=== PATIENT | female | born 2000 | race Caucasian/White ===

== ENCOUNTER 2021-01-08 21:24 | Outpatient (CLI) | payer BC ==
[~2021-01-08] VITALS: Ht 171.4 cm; Wt 83.2 kg
[2021-01-08 22:07] VITALS: BP 125/75
[2021-01-11] MEDS ORDERED: IBUP-1222 PO (06:42)
[2021-01-11] MEDS ORDERED: ENOX40SY4 SQ (06:43)
== END 2021-01-08 23:13 | disposition home or self-care (01) ==
LOC: LDOP 21:24
PROVIDERS: ATTEND Obstetrics & Gynecology
DX: O42.92 Full-term premature rupture of membranes, unspecified as to length of time between rupture and onset of labor (principal); Z3A.39 39 weeks gestation of pregnancy
CPT/HCPCS: 59025; 84112

== ENCOUNTER 2021-01-09 16:45 | Outpatient (CLI) | payer BC ==
[~2021-01-09] VITALS: Ht 171.4 cm; Wt 83.2 kg
[2021-01-09 17:17] VITALS: BP 128/76
[2021-01-09] MEDS ORDERED: ZOLPIDEM 5MG TABLET ONE (17:49)
[2021-01-09] MEDS ORDERED: ZOLPIDEM 5MG TABLET PO PRN (18:00)
[2021-01-11] MEDS ORDERED: IBUP-1222 PO (06:42)
[2021-01-11] MEDS ORDERED: ENOX40SY4 SQ (06:43)
== END 2021-01-09 18:04 | disposition home or self-care (01) ==
LOC: LDOP 16:45
PROVIDERS: ATTEND Obstetrics & Gynecology
DX: O26.893 Other specified pregnancy related conditions, third trimester (principal); R10.9 Unspecified abdominal pain; Z3A.40 40 weeks gestation of pregnancy
CPT/HCPCS: 59025

== ENCOUNTER 2021-01-10 00:58 | Inpatient (IN) | payer SELFPAY ==
[~2021-01-10] VITALS: Ht 170.2 cm; Wt 83.0 kg
[2021-01-10] MEDS ORDERED: FENTANYL PF 100 MCG/2ML IV PRN (01:30)
[2021-01-10] MEDS ORDERED: CALCIUM CARBONATE 500 MG TAB.CHEW PO PRN (01:30)
[2021-01-10] MEDS ORDERED: OXYTOCIN 30U/ 0.9% NaCL 500ML 500 ML IV ONE (01:30)
[2021-01-10] MEDS ORDERED: SODIUM CITRATE/CITRIC ACID 30 ML UDC PO PRN (01:30)
[2021-01-10] MEDS ORDERED: SODIUM CHLORIDE FLUSH 10ML SYR IVF PRN (01:30)
[2021-01-10] MEDS ORDERED: METOCLOPRAMIDE 5 MG/ML, 2ML IVPush PRN (01:30)
[2021-01-10] MEDS ORDERED: TERBUTALINE 1 MG/ML, 1ML SQ PRN (01:30)
[2021-01-10] MEDS ORDERED: ALUMINUM/MAG/SIMETHICONE 30 ML UDC PO PRN (01:30)
[2021-01-10] MEDS ORDERED: TERBUTALINE 1 MG/ML, 1ML IVPush PRN (01:30)
[2021-01-10] MEDS ORDERED: LIDOCAINE 1%, 20ML ONE (01:33)
[2021-01-10] MEDS ORDERED: OXYTOCIN 30U/ 0.9% NaCL 500ML 500 ML ONE ×2 (01:33→20:53)
[2021-01-10] MEDS ORDERED: MISOPROSTOL 200 MCG TABLET ONE (01:33)
[2021-01-10] MEDS ORDERED: FENTANYL PF 100 MCG/2ML ONE ×2 (01:47→03:34)
[2021-01-10] MEDS: LACTATED RINGERS 1,000 ML IV SCH ×5 (01:55→18:30)
[2021-01-10 01:56] LABS: BASOPHILS % (AUTO) 0 % (0-1); EOSINOPHILS % (AUTO) 1 % (1-7); LYMPHOCYTES % (AUTO) 20 % (22-44); MEAN CORPUSCULAR HEMOGLOBIN 27.2 pg (27.0-34.8); MEAN CORPUSCULAR HGB CONC 33.5 g/dL (32.4-35.8); MEAN PLATELET VOLUME 9.3 fL (7.4-10.4); MONOCYTES % (AUTO) 11 % (2-9); NEUTROPHILS % (AUTO) 68 % (42-75); PLATELET COUNT 207 x10^3/uL (130-400); RED BLOOD COUNT 3.84 x10^6/uL (3.82-5.3); RED CELL DISTRIBUTION WIDTH 13.6 % (9.6-15.2)
[2021-01-10] MEDS: FENTANYL PF 100 MCG/2ML IVPush PRN ×2 (01:56→03:43)
[2021-01-10 02:13] VITALS: BP 121/65
[2021-01-10 02:17] LABS: MD NO
[2021-01-10] MEDS ORDERED: ONDANSETRON 2MG/ML, 2ML ONE ×2 (03:34→15:22)
[2021-01-10] MEDS: ONDANSETRON 2MG/ML, 2ML IVPush PRN ×2 (03:44→15:31)
[2021-01-10] MEDS ORDERED: OXYTOCIN 30U/ 0.9% NaCL 500ML 500 ML IV PRN (07:00)
[2021-01-10] MEDS ORDERED: FENTANYL/BUPIV./NS/PF 250 ML EPIDCONT ONE (08:45)
[2021-01-10] MEDS ORDERED: BUPIVACAINE 0.25% ONE (08:45)
[2021-01-10] MEDS: D5%-LACTATED RINGERS 1,000 ML IV SCH ×3 (09:30→17:30)
[2021-01-10] MEDS ORDERED: EPHEDRINE 50 MG/ML, 1ML IVPush PRN (10:30)
[2021-01-10] MEDS ORDERED: DIPHENHYDRAMINE 50 MG/ML, 1ML IVPush PRN (10:30)
[2021-01-10] MEDS ORDERED: LACTATED RINGERS 1,000 ML IVBOLUS PRN (10:30)
[2021-01-10] MEDS ORDERED: FENTANYL/BUPIV./NS/PF 250 ML EPIDCONT SCH (10:30)
[2021-01-10] MEDS ORDERED: NALOXONE 0.4 MG/ML, 1ML IVPush PRN (10:30)
[2021-01-10] MEDS ORDERED: ONDANSETRON 2MG/ML, 2ML IVPush PRN (10:30)
[2021-01-10] MEDS: OXYTOCIN 30U/ 0.9% NaCL 500ML 500 ML IV SCH (20:00)
[2021-01-10] MEDS ORDERED: ACETAMINOPHEN 325 MG TABLET PO PRN ×2 (20:00)
[2021-01-10] MEDS ORDERED: METHYLERGONOVINE 0.2 MG/ML IM PRN (20:00)
[2021-01-10] MEDS ORDERED: OXYcodone/APAP 5/325MG TABLET PO PRN (20:00)
[2021-01-10] MEDS ORDERED: SIMETHICONE 80 MG CHEW TAB PO PRN (20:00)
[2021-01-10] MEDS ORDERED: ONDANSETRON 2MG/ML, 2ML IV PRN (20:00)
[2021-01-10] MEDS ORDERED: MISOPROSTOL 200 MCG TABLET PR PRN (20:00)
[2021-01-10 21:40] VITALS: BP 124/75
[2021-01-10] MEDS: IBUPROFEN 600 MG TABLET PO PRN (22:01)
[2021-01-11 00:20] VITALS: BP 113/72
[2021-01-11] MEDS: D5%-LACTATED RINGERS 1,000 ML IV SCH (01:30)
[2021-01-11] MEDS: LACTATED RINGERS 1,000 ML IV SCH ×4 (01:30→10:30)
[2021-01-11] MEDS: OXYTOCIN 30U/ 0.9% NaCL 500ML 500 ML IV SCH (02:22)
[2021-01-11] MEDS: IBUPROFEN 600 MG TABLET PO PRN ×4 (03:54→22:07)
[2021-01-11 04:00] VITALS: BP 111/71
[2021-01-11] MEDS ORDERED: IBUP-1222 PO ×2 (06:42)
[2021-01-11] MEDS ORDERED: ENOX40SY4 SQ ×2 (06:43)
[2021-01-11] MEDS ORDERED: OXYC1TAB14 PO (06:43)
[2021-01-11 07:06] LABS: BASOPHILS % (AUTO) 0 % (0-1); EOSINOPHILS % (AUTO) 1 % (1-7); LYMPHOCYTES % (AUTO) 11 % (22-44); MEAN CORPUSCULAR HEMOGLOBIN 27.3 pg (27.0-34.8); MEAN CORPUSCULAR HGB CONC 33.3 g/dL (32.4-35.8); MEAN PLATELET VOLUME 9.2 fL (7.4-10.4); MONOCYTES % (AUTO) 8 % (2-9); NEUTROPHILS % (AUTO) 80 % (42-75); PLATELET COUNT 171 x10^3/uL (130-400); RED BLOOD COUNT 3.23 x10^6/uL (3.82-5.3); RED CELL DISTRIBUTION WIDTH 13.6 % (9.6-15.2)
[2021-01-11 07:40] VITALS: BP 106/64
[2021-01-11 07:45] LABS: MD SCAN
[2021-01-11] MEDS: DOCUSATE 100 MG CAPSULE PO PRN (08:16)
[2021-01-11] MEDS: PRENATAL VIT/IRON/FA 1 EACH TABLET PO SCH (08:16)
[2021-01-11 12:00] VITALS: BP 110/64
[2021-01-11] MEDS: OXYcodone/APAP 5/325MG TABLET PO PRN ×2 (15:41→19:54)
[2021-01-11 20:05] VITALS: BP 110/65
[2021-01-11] MEDS ORDERED: FLU VACC QS2020-21(6MOS UP)/PF 60MCG/0.5 ML SYR IM ONE (21:00)
[2021-01-12 08:10] VITALS: BP 120/75
[2021-01-12] MEDS: PRENATAL VIT/IRON/FA 1 EACH TABLET PO SCH (08:28)
[2021-01-12] MEDS: IBUPROFEN 600 MG TABLET PO PRN (08:28)
[2021-01-12] MEDS: DOCUSATE 100 MG CAPSULE PO PRN (08:28)
[2021-01-12] MEDS ORDERED: IBUP-1222 PO (09:00)
== END 2021-01-12 12:30 | disposition home or self-care (01) | DRG 806 ==
LOC: LDOP 00:58 → LDIP 01:38 → 2NW 21:35
PROVIDERS: ADMIT Obstetrics & Gynecology; ATTEND Obstetrics & Gynecology
PROC: 10E0XZZ Delivery of Products of Conception, External Approach (ICD-10-PCS; principal; 2021-01-10)
PROC: 0KQM0ZZ Repair Perineum Muscle, Open Approach (ICD-10-PCS; 2021-01-10)
PROC: 3E0R3BZ Introduction of Anesthetic Agent into Spinal Canal, Percutaneous Approach (ICD-10-PCS; 2021-01-10)
PROC: 00HU33Z Insertion of Infusion Device into Spinal Canal, Percutaneous Approach (ICD-10-PCS; 2021-01-10)
DX: O77.0 Labor and delivery complicated by meconium in amniotic fluid (principal); D62 Acute posthemorrhagic anemia; Z37.0 Single live birth; Z3A.40 40 weeks gestation of pregnancy; O90.81 Anemia of the puerperium; O70.1 Second degree perineal laceration during delivery; Z20.822 Contact with and (suspected) exposure to COVID-19
CPT/HCPCS: 36415; J7121; 85025; 86592; 86850; 86900; 87635; 90686; G0378; J2405; J3010; J2590; J7120